=== PATIENT | male | born 1980 | race Caucasian/White ===

== ENCOUNTER 2021-03-29 13:45 | Emergency (ER) | payer MEDICAID ==
[~2021-03-29] VITALS: Ht 152.4 cm; Wt 81.8 kg
[2021-03-29] MEDS ORDERED: BACITRACIN 0.9 GM PACKET OINTMENT TP ONE (20:15)
[2021-03-29] MEDS ORDERED: POVIDONE-IODINE 10% 15 ML SOLUTION UD TP ONE (20:15)
[2021-03-29] MEDS ORDERED: HYDROCODONE/ACETAMINOPHEN 5-325 MG TABLET PO ONE (20:15)
[2021-03-29] MEDS ORDERED: LIDOCAINE 1% 10 ML VIAL SQ ONE (20:15)
[2021-03-29] MEDS ORDERED: CEPH500C3 PO (21:52)
[2021-03-29 22:38] VITALS: BP 129/76
== END 2021-03-29 22:45 | disposition home or self-care (01) ==
LOC: EMS 13:48
DX: S61.011A Laceration without foreign body of right thumb without damage to nail, initial encounter (principal); W45.8XXA Other foreign body or object entering through skin, initial encounter; Y93.89 Activity, other specified; Y92.89 Other specified places as the place of occurrence of the external cause; Y99.8 Other external cause status
CPT/HCPCS: 12001; 99283; J3490